=== PATIENT | female | born 1995 | race American Indian/Alaskan Native ===

== ENCOUNTER 2018-12-11 18:51 | Inpatient (IN) | payer MEDICAID ==
[2018-12-11] MEDS ORDERED: AMPICILLIN/NS 2 GM/100 ML 2 GM/100 ML BAG IV ONE (20:21)
[2018-12-11] MEDS ORDERED: BRETHINE SUB-Q PRN (20:21)
[2018-12-11] MEDS ORDERED: SUBLIMAZE IV PRN (20:21)
[2018-12-11] MEDS ORDERED: MINERAL OIL PO PRN (20:21)
[2018-12-11] MEDS ORDERED: XYLOCAINE 2% INFILTRATI ONE (20:21)
[2018-12-11] MEDS ORDERED: BRETHINE IVP PRN (20:21)
[2018-12-11] MEDS ORDERED: STADOL IV PRN (20:21)
[2018-12-11 20:53] LABS: Hematocrit 34.9 % (30.3-42.9); Hemoglobin 11.5 gm/dl (10.1-14.3); Mean Corpuscular HGB Conc 33 % (30-34); Mean Corpuscular Volume 76 fl (79-97); Platelet Count 292 K/mm3 (140-440); Red Cell Distribution Width 14.3 % (13.2-15.2)
[2018-12-11] MEDS ORDERED: LACTATED RINGERS 1,000 ML IV SCH (21:00)
[2018-12-11] MEDS ORDERED: PITOCin/NS 20 UNIT/1000ML DRIP 20 UNITS/1,000 ML BAG IV SCH (21:00)
[2018-12-11] MEDS ORDERED: PITOCin/NS 30 UNIT/500ML 30,000 MILLIUNITS/500 ML BAG IV ONE (21:33)
--- NOTE | 2018-12-11 22:28 | History and Physical Report ---
History of Present Illness Date of examination: 12/11/18 Date of admission: 12/11/2018 Chief complaint: My water broke History of present illness: Pt is a 23 year old who presents with c/o ROM at 39.2 weeks with EDC 12/16/2018. Pt has had care since 12 weeks with [facility]. Her course was complicated by positive chlamydia and GBS positive as recently as 11/16/18. There is no test of cure noted. Past History Past Medical History: no pertinent history Family/Genetic History: none Social history: single - Obstetrical History Expected Date of Delivery: 12/16/18 Actual Gestation: 39 Week(s) 2 Day(s) : 2 Para: 1 Number of Living Children: 1 Medications and Allergies Allergies Allergy/AdvReac Type Severity Reaction Status Date / Time pertussis vaccine,adsorbed Allergy Hives Verified 12/11/18 19:46 [Pertussis Vaccine,Adsorbed] Home Medications Medication Instructions Recorded Confirmed Last Taken Type ALBUTEROL Inhaler (OR & NICU) 2 puff IH QID PRN 07/05/13 04/17/16 11/24/13 08:00 History [Proair] Diclofenac EC [Voltaren] 25 mg PO BID 07/05/13 04/17/16 11/24/13 08:00 History Fluticasone Propionate [Flonase] 16 gm NS PRN PRN 07/05/13 04/17/16 11/24/13 08:00 History Fluticasone/Salmeterol [Advair 1 puff IH BID 07/05/13 04/17/16 11/24/13 08:00 History Diskus 100-50 mcg] Loratadine [Claritin] 10 mg PO DAILY 07/05/13 04/17/16 11/25/15 08:00 History Norgestimate-Ethinyl Estradiol 1 each PO DAILY 07/05/13 04/17/16 11/24/13 08:00 History [Sprintec] predniSONE [Deltasone] 20 mg PO TID #15 tab 10/27/13 04/17/16 11/24/13 08:00 Rx Ibuprofen [Motrin 600 MG tab] 600 mg PO Q6H PRN #20 tablet 11/05/13 04/17/16 11/24/13 08:00 Rx Famotidine [Pepcid] 20 mg PO DAILY #30 tablet 11/25/13 04/17/16 Unknown Rx ALBUTEROL Inhaler (OR & NICU) 2 puff IH QID PRN #1 inhalation 09/30/14 04/17/16 11/24/13 08:00 Rx [ProAir HFA Inhaler] Acetaminophen/Codeine 1 tab PO Q6H PRN #14 tab 09/30/14 04/17/16 Unknown Rx [Acetaminophen-Codeine #3 TAB] Azithromycin [Zithromax Z-HOOD] 250 mg PO DAILY #6 tablet 09/30/14 04/17/16 Unknown Rx Ibuprofen [Motrin] 600 mg PO Q8H PRN #14 tablet 09/30/14 04/17/16 11/25/15 08:00 Rx Prednisone [Prednisone 10 mg 10 mg PO .TAPER #1 tab.ds.pk 09/30/14 04/17/16 Unknown Rx (6-Day Pack, 21 Tabs)] Nitrofurantoin [place]/M-Cryst 100 mg PO Q12HR #14 capsule 10/15/15 04/17/16 Unknown Rx [Macrobid CAP] HYDROcodone/APAP 5-325 [[place] 1 each PO Q6HR PRN #30 tablet 04/18/16 Unknown Rx 5/325] Ibuprofen [Motrin] 800 mg PO Q8HR PRN #60 tablet 04/18/16 Unknown Rx Active Meds: Active Medications Butorphanol Tartrate (Stadol) 2 mg IV Q2H PRN PRN Reason: Pain , Severe (7-10) Last Admin: 12/11/18 21:47 Dose: 2 mg Documented by: Ephedrine Sulfate (Ephedrine Sulfate) 10 mg IV Q2M PRN PRN Reason: Hypotension Fentanyl (Sublimaze) 100 mcg IV Q2H PRN PRN Reason: Labor Pain Ampicillin Sodium (Ampicillin/Ns 1 Gm/50 Ml) 1 gm in 50 mls @ 100 mls/hr IV Q4HR RYAN; Protocol Lactated Ringer's (Lactated Ringers) 1,000 mls @ 125 mls/hr IV DIRECT RYAN Last Admin: 12/11/18 21:46 Dose: 125 mls/hr Documented by: Oxytocin/Sodium Chloride (Pitocin/Ns 20 Unit/1000ml Drip) 20 units in 1,000 mls @ 125 mls/hr IV DIRECT RYAN Oxytocin/Sodium Chloride (Pitocin/Ns 30 Unit/500ml) 30,000 milliunits in 500 mls @ 4 mls/hr IV DIRECT ONE; Protocol Stop: 12/17/18 02:32 Mineral Oil (Mineral Oil) 30 ml PO QHS PRN PRN Reason: Constipation Terbutaline Sulfate (Brethine) 0.25 mg SUB-Q ONCE PRN PRN Reason: Hyperstimulation/Hypertonicity Terbutaline Sulfate (Brethine) 0.25 mg IVP ONCE PRN PRN Reason: Hyperstimulation/Hypertonicity Review of Systems All systems: negative Genitourinary: leakage of fluid, contractions - Vital Signs Vital signs: Vital Signs Temp Pulse Resp BP 98.6 F 89 20 123/77 12/11/18 19:41 12/11/18 19:41 12/11/18 19:41 12/11/18 19:41 Temp Pulse Resp BP Pulse Ox 98.6 F 89 20 123/77 12/11/18 19:41 12/11/18 19:41 12/11/18 19:41 12/11/18 19:41 - Physical Exam Breasts: Cardiovascular: Regular rate, Normal S1, Normal S2 Abdomen: Positive: normal appearance, soft, normal bowel sounds. Negative: distention, tenderness Genitourinary (Female): Positive: normal external genitalia, normal perenium Vulva: both: normal Vagina: Positive: normal moisture. Negative: discharge Cervix: Negative: lesion, discharge Uterus: Positive: normal size, normal contour Adnexa: both: normal Anus/Rectum: Positive: normal perianal skin, heme negative. Negative: rectal mass, hemorrhoids Extremities: Deep Tendon Reflex Grade: Normal +2 - Obstetrical FHR: auscultation normal Cervical Dilatation: 4 Cervical Effacement Percentage: 90 station: -1 Uterine Contraction Pattern: Regular Uterine Tone Measurement Phase: Contraction Uterine Contraction Intensity: Moderate Results Result Diagrams: 12/11/18 20:27 Abnormal lab results 12/11/18 Range/Units 20:27 WBC 12.8 H (4.5-11.0) K/mm3 MCV 76 L (79-97) fl MCH 25 L (28-32) pg All other labs normal. Assessment and Plan IUP at 39.2 weeks with SROM. Doing well. ADmit for labor. Anticipate .
--- NOTE | 2018-12-11 23:34 | Procedure Note ---
OB Delivery Note - Delivery Date of Delivery: 12/11/18 Surgeon: TUSHAR KRUEGER Estimated blood loss: 200cc - Vaginal Delivery presentation: vertex Delivery position: OA Intrapartum events: none, precipitous labor- <3hr Delivery induction: none Delivery monitor: external FHT, external uterine Route of delivery: Delivery placenta: spontaneous Delivery cord: 3 umbilical vessels Episiotomy: none Delivery laceration: none Anesthesia: none Delivery comments: Viable male delivered over intact perineum with nuchal cord times 1 reduced after due to patient inability to stop pushing. Infant placed on maternal abdomen. Cord clamped and cut when done pulsing. Placenta delivered spontaneously and intact with 3vc. No lacerations. Excellent hemostasis. Pt tolerated procedure well. - Infant A at 1 minute: 8 at 5 minutes: 9 Infant Gender: Male (7 pounds 2 ounces 3222g)
[2018-12-12] MEDS ORDERED: AMPICILLIN/NS 1 GM/50 ML 1 GM/50 ML BAG IV SCH (00:23)
[2018-12-12] MEDS ORDERED: LANSINOH TP PRN (02:31)
[2018-12-12] MEDS ORDERED: PHENERGAN PO PRN (02:31)
[2018-12-12] MEDS ORDERED: SODIUM CHLORIDE FLUSH SYRINGE 10 ML IV NR (02:31)
[2018-12-12] MEDS ORDERED: NORCO 5/325 PO PRN (02:31)
[2018-12-12] MEDS ORDERED: DULCOLAX PR PRN (02:31)
[2018-12-12] MEDS ORDERED: TUCKS PAD TP PRN (02:31)
[2018-12-12] MEDS ORDERED: BENADRYL PO PRN (02:31)
[2018-12-12] MEDS ORDERED: PHENERGAN PR PRN (02:31)
[2018-12-12] MEDS ORDERED: MILK OF MAGNESIA PO PRN (02:31)
[2018-12-12] MEDS ORDERED: ZOFRAN IV PRN (02:31)
[2018-12-12] MEDS ORDERED: TYLENOL PO PRN (02:31)
[2018-12-12] MEDS: IBUPROFEN PO SCH ×4 (05:32→23:05)
[2018-12-12] MEDS: PRENATAL VITAMIN PO SCH (12:01)
[2018-12-12] MEDS: COLACE PO SCH ×2 (12:01→23:05)
[2018-12-12 13:45] LABS: Hematocrit 32.5 % (30.3-42.9); Hemoglobin 10.6 gm/dl (10.1-14.3)
--- NOTE | 2018-12-12 15:15 | Progress Note ---
Assessment and Plan PPD 1 s/p . Doing well. Continue routine care. Pt did not receive full treatment for GBs and is on 48 hour hold. Subjective - Subjective Date of service: 12/12/18 Interval history: Pt is a 23 year old who presents with c/o ROM at 39.2 weeks with EDC 12/16/2018. Pt has had care since 12 weeks with [facility]. Her course was complicated by positive chlamydia and GBS positive as recently as 11/16/18. There is no test of cure noted. Patient reports: appetite normal, voiding normally, pain well controlled, ambulating normally [place]: doing well Objective - Vital Signs Latest vital signs: Vital Signs Temp Pulse Resp BP BP Pulse Ox 12/12/18 08:14 98.8 F 102 H 20 107/60 99 12/12/18 02:53 98.2 F 12/12/18 02:35 98 H 126/67 100 12/12/18 01:18 94 H 126/66 12/12/18 01:03 109 H 140/73 12/12/18 01:00 97.0 F L 12/12/18 00:48 109 H 140/72 12/12/18 00:33 105 H 146/67 12/12/18 00:18 90 133/69 12/12/18 00:03 96 H 139/69 12/11/18 23:48 98 H 155/70 12/11/18 23:34 99 H 137/79 12/11/18 23:18 97 H 129/66 12/11/18 23:04 106 H 115/83 12/11/18 22:50 110 H 134/88 12/11/18 22:38 117 H 100 12/11/18 22:34 90 136/86 12/11/18 22:19 96 H 137/84 12/11/18 22:03 100 H 142/96 12/11/18 19:41 98.6 F 89 20 123/77 Intake and Output 12/12/18 12/12/18 12/12/18 06:59 14:59 22:59 Intake Total 720 Output Total 1400 900 Balance -1400 -180 Intake: Oral 360 Intake, Free Water 360 Output: Urine 1400 900 Void 1400 900 Other: Total, Intake Amount 360 Total, Output Amount 500 900 # Voids Void 1 3 Estimated Blood Loss 150 - Exam Breasts: Present: deferred Cardiovascular: Present: Regular rate, Normal S1, Normal S2 Lungs: Present: Clear to auscultation, Normal air movement Abdomen: Present: normal appearance, soft, normal bowel sounds Vulva: both: normal Uterus: Present: normal, firm Extremities: Present: normal - Labs Labs: Abnormal lab results 12/11/18 Range/Units 20:27 WBC 12.8 H (4.5-11.0) K/mm3 MCV 76 L (79-97) fl MCH 25 L (28-32) pg
[2018-12-13] MEDS: IBUPROFEN PO SCH ×5 (05:30→23:17)
--- NOTE | 2018-12-13 08:44 | Discharge Summary ---
Providers - Providers Date of Admission: 12/11/18 22:06 Date of discharge: 12/14/18 Attending physician: MUSHTAQ RIVAS MD Primary care physician: MUSHTAQ RIVAS MD Hospitalization Reason for admission: rupture of membranes Delivery: Procedure details: Please see delivery note. Episiotomy: none Laceration: none Other procedures: none complications: none Discharge diagnosis: IUP at term delivered [place] baby: male Hospital course: The patient was admitted with ruptured membranes and went on to have a spontaneous vaginal delivery was tolerated well. Her course was uncomplicated and she met discharge criteria on day #2. She will follow-up in the office in 4 weeks. Condition at discharge: Stable Disposition: - TO HOME OR SELFCARE - Discharge Diagnoses (1) Term of male Status: Acute (2) Spontaneous rupture of amniotic membranes Status: Acute Plan - Discharge Medications Prescriptions: Ibuprofen [Motrin] 800 mg PO Q8HR PRN #30 tablet PRN Reason: Pain, Moderate (4-6) HYDROcodone/APAP 5-325 [[place] 5/325] 1 each PO Q6HR PRN #20 tablet PRN Reason: Pain - Provider Discharge Summary Activity: routine, no sex for 6 weeks, no heavy lifting 4 weeks, no strenuous exercise Diet: routine Instructions: routine Additional instructions: [] Smoking cessation referral if applicable(refer to patient education folder for contact #) [] Refer to [facility] Booklet Call your doctor immediately for: * Fever > 100.5 * Heavy vaginal bleeding ( >1 pad per hour) * Severe persistent headache * Shortness of breath * Reddened, hot, painful area to leg or breast * Drainage or odor from incision. * Keep incision clean and dry at all times and follow doctor's instructions regarding bathing/showering - Follow up plan Follow up: MUSHTAQ RIVAS MD [Primary Care Provider] - 01/10/19 (Please call to schedule your appt. Please schedule your son's circumcision before he is one month old. )
--- NOTE | 2018-12-13 08:44 | Progress Note ---
Assessment and Plan A: PPD#2 s/p at term P: Routine care. Anticipate discharge tomorrow AM Subjective - Subjective Date of service: 12/13/18 Principal diagnosis: s/p at term Interval history: No overnight events. Patient reports: appetite normal, voiding normally, pain well controlled, ambulating normally [place]: doing well Objective - Vital Signs Latest vital signs: Vital Signs Temp Pulse Resp BP Pulse Ox 12/13/18 01:18 98.4 F 105 H 18 123/71 99 12/12/18 16:45 98.8 F 97 H 20 112/62 100 Intake and Output 12/12/18 12/13/18 12/13/18 22:59 06:59 14:59 Intake Total 1200 360 Balance 1200 360 Intake: Oral 480 Intake, Free Water 720 360 Other: Total, Intake Amount 480 # Voids Void 2 1 - Exam Breasts: Present: deferred Cardiovascular: Present: Regular rate Lungs: Present: Clear to auscultation Abdomen: Present: soft Uterus: Present: fundal height at umbilicus Extremities: Present: normal
[2018-12-13] MEDS: PRENATAL VITAMIN PO SCH (10:41)
[2018-12-13] MEDS: COLACE PO SCH ×2 (10:41→23:17)
[2018-12-14] MEDS: PRENATAL VITAMIN PO SCH (10:29)
[2018-12-14] MEDS: COLACE PO SCH (10:29)
[2018-12-14] MEDS: IBUPROFEN PO SCH (12:43)
[2018-12-14 17:49] VITALS: BP 113/75
== END 2018-12-14 14:00 | disposition home or self-care (01) | DRG 775 ==
LOC: TRG 18:51 → LD 22:06 → OB 12-12 01:49
PROVIDERS: ADMIT Obstetrics & Gynecology; ATTEND Obstetrics & Gynecology
PROC: 10E0XZZ Delivery of Products of Conception, External Approach (ICD-10-PCS; principal; 2018-12-11)
DX: O62.3 Precipitate labor (principal); Z3A.39 39 weeks gestation of pregnancy; Z37.0 Single live birth; Z88.7 Allergy status to serum and vaccine
CPT/HCPCS: 36415; 85014; 85018; 85027; 86592; 86850; 86900; 86901; G0378; J0290; J0595; J2590; J7120

== ENCOUNTER 2021-05-06 05:20 | Outpatient (CLI) | payer MEDICAID ==
[2021-05-06] MEDS ORDERED: LACTATED RINGERS 1,000 ML IV ONE (05:53)
[2021-05-06 06:25] LABS: Hemoglobin 11.2 gm/dl (10.1-14.3); Mean Corpuscular HGB Conc 33 % (30-34); Mean Corpuscular Volume 80 fl (79-97); Platelet Count 217 K/mm3 (140-440); Red Blood Count 4.24 M/mm3 (3.65-5.03); Red Cell Distribution Width 13.4 % (13.2-15.2)
[2021-05-06 06:37] LABS: Bacteria,Urine 1+ /HPF (Negative); Bilirubin,Urine NEG (Negative); Blood,Urine NEG (Negative); Color,Urine Straw (Yellow); Protein,Urine <15 mg/dL mg/dL (Negative); Urobilinogen,Urine < 2.0 mg/dL (<2.0)
[2021-05-06] MEDS ORDERED: TERBUTALINE 1 MG/1 ML INJ SUB-Q SCH (09:00)
[2021-05-06 10:03] VITALS: BP 117/57
== END 2021-05-06 10:15 | disposition home or self-care (01) ==
LOC: TRG 05:20 → APU 05:21 → TRG 10:15
PROVIDERS: ATTEND Obstetrics & Gynecology
DX: O26.892 Other specified pregnancy related conditions, second trimester (principal); R10.9 Unspecified abdominal pain; Z3A.27 27 weeks gestation of pregnancy
CPT/HCPCS: 36415; 81001; 85027; 96360; 96372; J3105; J7120

== ENCOUNTER 2021-05-07 16:00 | Outpatient (CLI) | payer MEDICAID ==
[2021-05-07] MEDS ORDERED: TERBUTALINE 1 MG/1 ML INJ SUB-Q SCH (17:00)
[2021-05-07 17:01] LABS: Bilirubin,Urine NEG (Negative); Blood,Urine NEG (Negative); Color,Urine Yellow (Yellow); Mucus,Urine FEW /HPF; Protein,Urine <15 mg/dL mg/dL (Negative); Urobilinogen,Urine < 2.0 mg/dL (<2.0)
[2021-05-07 17:12] VITALS: BP 119/67
[2021-05-07] MEDS ORDERED: LACTATED RINGERS 1,000 ML IV ONE (17:30)
== END 2021-05-07 17:17 | disposition home or self-care (01) ==
LOC: TRG 16:00 → APU 16:01 → TRG 17:17
PROVIDERS: ATTEND Obstetrics & Gynecology
DX: Z34.92 Encounter for supervision of normal pregnancy, unspecified, second trimester (principal); Z3A.27 27 weeks gestation of pregnancy
CPT/HCPCS: 59025; 81001

== ENCOUNTER 2021-08-04 07:50 | Outpatient (CLI) | payer MEDICAID ==
[2021-08-04 08:41] VITALS: BP 129/70
== END 2021-08-04 11:13 | disposition home or self-care (01) ==
LOC: TRG 07:50 → APU 08:04 → TRG 11:13
PROVIDERS: ATTEND Obstetrics & Gynecology
DX: Z34.93 Encounter for supervision of normal pregnancy, unspecified, third trimester (principal); Z3A.39 39 weeks gestation of pregnancy
CPT/HCPCS: 36415; 59025; 84112